=== PATIENT | male | born 1955 | race Caucasian/White ===

== ENCOUNTER 2018-08-23 06:49 | Observation (INO) | payer OTHER ==
[2018-08-23] VITALS (11 sets, daily range): BP systolic 113–146; BP diastolic 57–93
[~2018-08-23] VITALS: Ht 195.6 cm; Wt 112.9 kg
[~2018-08-23 06:49] MED LIST: AFRIN MENTHOL S15 ML NS; ASPIRIN325 PO; BYSTOLIC2.5 MG PO; CADUET 5 MG-201 EACH PO; CENTRUM SILVER1 EAC4 PO; CVS PAIN RELIE PO; DECONGESTANT NA15 ML NASAL; EFFIENT10 MG PO; EFFIENT5 MG PO; HYDROCODON-ACE1 EAC5 PO; LAMISIL250 MG PO; LIPITOR10 MG PO; LISINOPRIL2.5 MG PO; NIASPAN ER 101000 M1 PO; PREVACID 30MG C30 M1 PO; THERA-D4000 UNIT PO; TYLENOL P.M. E1 EAC3; ZANAFLEX2 M2 PO; ZETIA10 MG PO
[2018-08-23] MEDS ORDERED: LIPITOR 20 MG T20 M1 PO (07:07)
[2018-08-23] MEDS ORDERED: XANAX1 MG PO (07:12)
[2018-08-23] MEDS ORDERED: CARISOPRODOL 3350 MG PO (07:12)
[2018-08-23] MEDS ORDERED: FLOMAX0.4 MG PO (07:13)
[2018-08-23] MEDS ORDERED: ZONEGRAN50 MG PO (07:14)
[2018-08-23 07:28] LABS: HEMATOCRIT 44.7 % (42.0-52.0); HEMOGLOBIN 15.2 gm/dL (14.0-18.0); MCH 33.1 pg (26.0-34.0); MCHC 34.1 g/dL (28.0-37.0); MCV 97.2 fL (80.0-100.0); RBC 4.6 mil/uL (4.50-6.00); RDW 13.2 % (10.5-14.5); WBC 5.2 thou/uL (4.0-11.0)
[2018-08-23 07:40] LABS: CALCIUM 9.2 mg/dL (8.5-10.1); POTASSIUM 4.6 mmol/L (3.5-5.1)
--- NOTE | 2018-08-23 18:04 | EKG ---
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 VITALE : 1955 Requested By: Igor Lundberg Order Number: [id number] MD: Jose M Sousa Measurements Intervals [place] Rate: 49 P: 54 [place]: 165 QRS: 62 QRSD: 103 T: 52 QT: 457 QTc: 413 Interpretive Statements Sinus bradycardia Compared to ECG 08/14/2012 09:09:50 No significant changes Electronically Signed On 08-23-2018 18:04:18 CDT by Jose M Sousa [email or web address] ��������������������������������������������� <ELECTRONICALLY SIGNED> ���������������������������������������� By: Jose M Sousa MD ��������������������������������������������� 08/23/18 1804 7 7 Jose M Sousa MD /LEODAN
--- NOTE | 2018-08-23 18:21 | NUR ---
PT ADMITED FROM CARDIAC CATH. ADMISSION HISTORY AND ASSESSMENT COMPLETED. REPORT HAVING CHRONIC BACK PAIN. VSS. RIGHT GROIN INCISION C/D/I. NO HEMATOMA NOTED. NO CONCERNS AT THIS TIME. WILL CONTINUE TO MONITOR.
[2018-08-24 00:43] VITALS: BP 117/84
--- NOTE | 2018-08-24 03:18 | NUR ---
ASSUMED PT CARE AT 1900. PT A/OX4, VITAL SIGNS STABLE, ASSESSMENT CHARTED. GROIN SITE CLEAN, DRY, INTACT. NO COMPLAINTS OF PAIN. PT RESTED WELL THROUGH THE NIGHT. WILL CONTINUE TO MONITOR.
[2018-08-24 03:39] LABS: CALCIUM 8.8 mg/dL (8.5-10.1); CREATININE 0.9 mg/dL (0.7-1.3); POTASSIUM 4.4 mmol/L (3.5-5.1)
[2018-08-24 03:41] LABS: APTT 26.6 Seconds (24.5-32.8); PROTIME 10.7 Seconds (9.3-11.4)
[2018-08-24 04:40] LABS: HEMATOCRIT 41.9 % (42.0-52.0); HEMOGLOBIN 14.3 gm/dL (14.0-18.0); MCHC 34.1 g/dL (28.0-37.0); MCV 96.6 fL (80.0-100.0); RBC 4.34 mil/uL (4.50-6.00); RDW 12.9 % (10.5-14.5); WBC 10.8 thou/uL (4.0-11.0)
[2018-08-24 05:04] VITALS: BP 132/84
[2018-08-24 07:15] VITALS: BP 130/77
[2018-08-24] MEDS ORDERED: EFFIENT10 MG PO (07:53)
[2018-08-24 08:00] VITALS: BP 130/77
--- NOTE | 2018-08-24 09:13 | EKG ---
[place] [address] [facility] [place] [address] ELECTROCARDIOGRAM REPORT Name: ALMA REYNAGA Room #: 201-P ADM [facility] M.R.#: [id number] ������������������ Admission: 08/23/18 ������������������ Attend Phys: Igor Lundberg MD, Discharge: ������������������ Date of : 57 Report #: [id number] ����������������������������������������������������������������� [id number] THIS REPORT FOR: //name// [facility] Test Date: 2018-08-24 Test Time: 07:11:33 Pat Name: ALMA REYNAGA Department: Room: 201 P Gender: M Stabber: ANDREW : 1955 Requested By: Josefina Lyon Order Number: [id number] MD: Joseph Baker Measurements Intervals [place] Rate: 79 P: 41 PA: 177 QRS: 13 QRSD: 105 T: -2 QT: 357 QTc: 410 Interpretive Statements Sinus rhythm Probable left ventricular hypertrophy Baseline wander in lead(s) V6 Compared to ECG 08/23/2018 07:28:47 Sinus bradycardia no longer present Electronically Signed On 08-24-2018 9:13:04 CDT by Joseph Baker [email or web address] ��������������������������������������������� <ELECTRONICALLY SIGNED> ���������������������������������������� By: Joseph Baker MD, [facility] ��������������������������������������������� 08/24/18 0913 0 Joseph Baker MD, [facility] /EPI
[2018-08-24 10:11] VITALS: BP 130/77
--- NOTE | 2018-08-24 11:10 | NUR ---
ASSUMED CARE OF PT AT 0700. PT A&OX4, UP AD TUAN WITH STEADY GAIT. ROOM CLEAR OF FALL HAZARDS, LIGHTING WAS ADEQUATE. PT'S GROIN SITE WAS C/D/I WITH NO BLEEDING OR HEMATOMA. PT VITALS AND ASSESSMENT WITHING NORMAL LIMITS. PT SINUS RHYTHM/SINUS PHILLIP ON TELEMETRY. PT HAD HEADACHE THAT WAS PARTIALLY CONTROLLED WITH TYLENOL. PT AND FAMILY COMMUNICATED UNDERSTANDING OF ALL DISCHARGE ORDERS/MEDS AND FOLLOWUP APPTS. PT GIVEN POST CATH INSTRUCTIONS. ONE IV AND TELE REMOVED. PT WHEELED TO EXIT WITH FAMILY TO DRIVE HIM HOME.
--- NOTE | 2018-08-24 16:50 | CATHLAB ---
[facility] [address] [place] [address] INVASIVE PROCEDURE REPORT Name: ALMA REYNAGA Room #: 201-P [facility] M.R.#: [id number] ������������� Admission: 08/23/18 ������������� Attend Phys: Igor Lundberg, Discharge: ��� 08/24/18 ������������� ��� Date of : 57 Date of Service: 08/24/18 1650 �� Report #: [id number] �������� ��������������������������������������������[id number] THIS REPORT FOR: //name// APPROVED REPORT Study performed: 08/23/2018 08:44:42 Patient Details Patient Status: Out-Patient Room #: The patient is a 63 year-old male Event Personnel Igor Lundberg Safety Admin Assistant, Maria Elena Johansen RN, Parish Garcia RN, Tayla Nye RTR, BRANDON James, Karla Estes Monitor Procedures Performed Art Access - R femoral artery* 29689 Initial Mod Sed Same Phys/QHP Gr5y 680468 53989 Mod Sed Same Phys/QHP Ea 716472 Left Heart Cath w/or w/o Coronaries 8584774 [facility] N[facility]SA Place w/wo Plasty Single CIRC 641586 Hemostasis w/ Mynx Indication Chest pain Procedure Narrative The patient was brought electively to the Cardiac Catheterization Laboratory and was prepped and draped in a sterile manner. The Right Groin^ was infiltrated with 1% Lidocaine subcutaneous anesthesia. A PINNACLE 6FR Sheath #[id number] sheath was inserted into the RFA^. Coronary angiography was performed using coronary diagnostic catheters. The right coronary system was accessed and visualized with a JR 4 catheter. The left coronary system was accessed and visualized with a JL 4 catheter. The left ventricle was accessed and visualized with a Pigtail catheter. Left ventriculogram was performed in PONCE projection. An aortogram of the abdominal aorta was performed. Closure device was deployed with a 6 Fr Mynx. The patient tolerated the procedure well and there were no complications associated with the procedure. There was no hematoma. Intraoperative Conscious Sedation Sedation start time: 09:09 Case end Time: 09:55 Fentanyl 100 mcg Versed 2.[address] [address] INVASIVE PROCEDURE REPORT Name: JUHIALMA TEJADA Room #: 201-P [facility] IN .R.#: [id number] ������������� Admission: 08/23/18 ������������� Attend Phys: Igor Lundberg, Discharge: ��� 08/24/18 ������������� ��� Date of : 57 Date of Service: 08/24/18 1650 �� Report #: [id number] �������� ��������������������������������������������[id number] Fluoro Time: 8.15 minutes Dose: DAP 64108.00 cGycm2 1355 mGy Contrast Type and Amount: Omnipaque 200 ml Hemodynamics The aortic pressure is 140/76 mmHg with a mean of 102 mmHg. The left ventricular pressure is 147/11 mmHg with a mean of mmHg. The left ventricular end diastolic pressure is 32 mmHg. PCI Technique Lesion Percutaneous coronary intervention was performed on the mid circumflex artery segment. A LAUNCHER 6FR EBU 3.5 #[id number] Guide Catheter was used to engage the ostium. A Luge Wire .014 x 182CM #[id number] Interventional Guidewire was used to cross the lesion. BALLOON DILATION A Balloon catheter Sprinter OTW 2.5 x 15 #[id number] was inserted and inflated up to 14.00atm for 29seconds. Additional Inflation: 16.00atm for 25seconds. STENT DEPLOYMENT A drug-eluting stent RESOLUTE RAJNI OTW 2.75 X 12 #[id number] was inserted and inflated up to 14.00atm for 26seconds. Additional Inflation: 16.00atm for 15seconds. POST STENT DEPLOYMENT BALLOON DILATION A Balloon catheter TREK NC OTW 2.75 X 12 #[id number] was inserted and inflated up to 20.00atm for 27seconds. Additional Inflation: 20.00atm for 30seconds. Conclusion #1 successful PTCA stent of a high-grade subtotal lesion in the proximal mid circumflex which extends slightly into previously placed stent removal remotely placed 2013 a 2.75 x 12 resolute medicated stent postdilated 3.0 mm with a noncompliant balloon. BELEN grade 3 flow noted #2 left main with mild disease #3 the LAD extends around the apex with diffuse distal disease but no occlusive disease a prior proximal stent has minimal in-stent restenosis and has a pinched diagonal ostial lesion this is relatively small and unchanged from the remote stent placement #4 dominant right coronary artery with mild disease proximal and then a mid vessel lesion of 50% long giving rise to more preserved and widely patent distal vessel including the PDA and TRI #5 normal left ventricular size and systolic function lower limits of [facility] [address] [place] [address] INVASIVE PROCEDURE REPORT Name: ALMA REYNAGA Room #: 201-P [facility] IN M.R.#: [id number] ������������� Admission: 08/23/18 ������������� Attend Phys: Igor Lundberg, Discharge: ��� 08/24/18 ������������� ��� Date of : 57 Date of Service: 08/24/181649 �� Report #: [id number] �������� ��������������������������������������������[id number] normal EF 50-55% #6 abdominal aortogram revealing normal caliber aorta mild tortuosity no aneurysm formation Conditions and plan: Continue aggressive risk factor modification dual antiplatelet therapy at least 6 months. And then evaluation for spinal stimulator. Transfer to CCU in stable condition. ��������������������������������������������� <ELECTRONICALLY SIGNED> ���������������������������������������� By: Igor Lundberg MD, FACC ��������������������������������������������� 08/24/181649 49 49 Igor Lundberg MD, FACC /INF
== END 2018-08-24 10:45 | disposition home or self-care (01) ==
LOC: CATH 06:49 → 2N 14:14 → ENTRNSPT 08-24 10:28 → EDTRNSPTSTS 08-24 10:33 → 2N 08-24 10:45
PROVIDERS: Nurse Practitioner Adult Health; ADMIT Internal Medicine Cardiovascular Disease
DX: I25.10 Atherosclerotic heart disease of native coronary artery without angina pectoris (principal); I10 Essential (primary) hypertension; E78.5 Hyperlipidemia, unspecified; G89.29 Other chronic pain; M54.9 Dorsalgia, unspecified; I65.29 Occlusion and stenosis of unspecified carotid artery; Z79.899 Other long term (current) drug therapy

== ENCOUNTER → 2019-05-05 | Outpatient (CLI) | payer OTHER ==
[~2019-05-05] MED LIST changes: +CARISOPRODOL 3350 MG PO; +FLOMAX0.4 MG PO; +LIPITOR 20 MG T20 M1 PO; +XANAX1 MG PO; +ZONEGRAN50 MG PO
== END ==
LOC: SJCVCIMAG 08:37
DX: R10.9 Unspecified abdominal pain (principal); R63.5 Abnormal weight gain; R14.0 Abdominal distension (gaseous)

== ENCOUNTER → 2019-10-17 | Outpatient (CLI) | payer OTHER | LOC: SJCVCIMAG 11:09 | PROVIDERS: ATTEND Internal Medicine Cardiovascular Disease | DX: Z01.818 Encounter for other preprocedural examination (principal); R00.1 Bradycardia, unspecified; I25.10 Atherosclerotic heart disease of native coronary artery without angina pectoris; I10 Essential (primary) hypertension; E78.5 Hyperlipidemia, unspecified; Z79.899 Other long term (current) drug therapy ==